=== PATIENT | male | born 1960 | race Asian ===

== ENCOUNTER 2019-02-09 10:53 | Emergency (ER) | payer OTHER ==
[~2019-02-09] VITALS: Ht 173 cm; Wt 90.0 kg
[2019-02-09 10:59] VITALS: BP 130/84; TEMP 97.3
[2019-02-09] MEDS ORDERED: ALAVERT10 M1 PO (11:09)
[2019-02-09] MEDS ORDERED: VOLTAREN GEL 1%1 TU TP (11:11)
[2019-02-09] MEDS ORDERED: LIDEX CR 15GM TP (11:11)
[2019-02-09] MEDS ORDERED: PREDNISONE20 MG PO (11:32)
[2019-02-09] MEDS ORDERED: ATARAX 25MG25 MG/TAB PO (11:33)
[2019-02-09] MEDS ORDERED: VALTREX1 GM PO (11:33)
[2019-02-09 11:45] VITALS: PULSE 72
== END 2019-02-09 11:50 | disposition home or self-care (01) ==
LOC: COL.ER 10:53
DX: R21 Rash and other nonspecific skin eruption (principal); I10 Essential (primary) hypertension; E78.5 Hyperlipidemia, unspecified